=== PATIENT | male | born 1970 | race Caucasian/White ===

== ENCOUNTER 2021-10-03 12:24 | Emergency (ER) | payer MEDICARE ==
[2021-10-03 15:59] LABS: Basophils % (Auto) 0.6 % (0.0-1.8); Eosinophils # (Auto) 0.1 K/mm3 (0.0-0.4); Eosinophils % (Auto) 0.9 % (0.0-4.3); Hematocrit 41.9 % (35.5-45.6); Hemoglobin 14.8 gm/dl (11.8-15.2); Lymphocytes # (Auto) 2.4 K/mm3 (1.2-5.4); Lymphocytes % (Auto) 29.2 % (13.4-35.0); Mean Corpuscular HGB Conc 35 % (32-34); Mean Corpuscular Volume 98 fl (84-94); Monocytes # (Auto) 0.6 K/mm3 (0.0-0.8); Monocytes % (Auto) 7.4 % (0.0-7.3); Platelet Count 190 K/mm3 (140-440); Red Cell Distribution Width 13.7 % (13.2-15.2)
[2021-10-03 16:04] LABS: BUN/Creatinine Ratio 18; Blood Urea Nitrogen 14 mg/dL (9-20); Calcium 8.1 mg/dL (8.4-10.2); Hemolysis Index 15
--- NOTE | 2021-10-03 16:48 | Emergency Department Report ---
ED Psych HPI - General Chief Complaint: Psych Stated Complaint: Psychosis, HI Time Seen by Provider: 10/03/21 16:01 Source: EMS Mode of arrival: Stretcher Limitations: No Limitations - History of Present Illness Initial Comments: pt here for HI. Pt psychiatrist called and reported pt has been off meds for about 1 year, called and left threatening messages with doctor. displayed psychosis and delusional behavior. pt denies at this time MD Complaint: other -: week(s) Associated Psychiatric Symptoms: homicidal ideation Improves With: medication Context: not taking psychiatric Associated Symptoms: denies other symptoms Treatments Prior to Arrival: none - Related Data Previous Rx's Medication Instructions Recorded Last Taken Type Divalproex Dr [DepaKOTE DR] 250 mg PO BID 30 Days #60 tablet 10/06/21 Unknown Rx Quetiapine Fumarate [SEROquel] 300 mg PO QHS 30 Days #30 10/06/21 Unknown Rx Allergies Allergy/AdvReac Type Severity Reaction Status Date / Time No Known Allergies Allergy Unverified 10/03/21 12:33 ED Review of Systems ROS: Stated complaint: Psychosis, HI Other details as noted in HPI Comment: Unobtainable due to pts medical conditions ED Past Medical Hx - Past Medical History Previous Medical History?: Yes Hx Psychiatric Treatment: Yes (schizophrenia) - Medications Home Medications: Home Medications Medication Instructions Recorded Confirmed Last Taken Type Divalproex Dr [DepaKOTE DR] 250 mg PO BID 30 Days #60 tablet 10/06/21 Unknown Rx Quetiapine Fumarate [SEROquel] 300 mg PO QHS 30 Days #30 10/06/21 Unknown Rx ED Physical Exam - General Limitations: No Limitations General appearance: alert, in no apparent distress - Head Head exam: Present: atraumatic, normocephalic - Eye Eye exam: Present: normal appearance - ENT ENT exam: Present: mucous membranes moist - Neck Neck exam: Present: normal inspection - Respiratory Respiratory exam: Present: normal lung sounds bilaterally. Absent: respiratory distress - Cardiovascular Cardiovascular Exam: Present: regular rate, normal rhythm. Absent: systolic murmur, diastolic murmur, rubs, gallop - GI/Abdominal GI/Abdominal exam: Present: soft, normal bowel sounds - Rectal Rectal exam: Present: deferred - Extremities Exam Extremities exam: Present: normal inspection - Back Exam Back exam: Present: normal inspection - Neurological Exam Neurological exam: Present: alert, oriented X3 - Psychiatric Psychiatric exam: Present: anxious, homicidal ideation - Skin Skin exam: Present: warm, dry, intact, normal color. Absent: rash ED Course Vital Signs 10/03/21 10/03/21 10/04/21 12:27 20:26 10:11 Temperature 98.6 F 98.6 F 98.9 F Pulse Rate 93 H 96 H 89 Respiratory 14 18 18 Rate Blood Pressure 140/90 142/84 136/62 [Left] O2 Sat by Pulse 97 98 100 Oximetry 10/04/21 10/04/21 10/05/21 20:25 21:15 03:28 Temperature 99.8 F H 98.7 F Pulse Rate 109 H 83 Respiratory 18 18 16 Rate Blood Pressure 131/78 127/76 [Left] O2 Sat by Pulse 100 100 99 Oximetry 10/05/21 10/05/21 10/05/21 11:13 17:25 20:41 Temperature 99.7 F H 99.3 F Pulse Rate 99 H 90 Respiratory 16 18 Rate Blood Pressure 136/78 136/81 [Left] O2 Sat by Pulse 100 100 100 Oximetry 10/06/21 10:25 Temperature 98.8 F Pulse Rate 84 Respiratory 18 Rate Blood Pressure 124/68 [Left] O2 Sat by Pulse 100 Oximetry ED Medical Decision Making - Lab Data Result diagrams: 10/03/21 14:50 10/03/21 14:50 Critical care attestation.: If time is entered above; I have spent that time in minutes in the direct care of this critically ill patient, excluding procedure time. ED Disposition Clinical Impression: Schizophrenia Disposition: 01 HOME / SELF CARE / HOMELESS Is pt being admited?: No Does the pt Need Aspirin: No Condition: Stable Additional Instructions: OUTPATIENT MENTAL HEALTH RESOURCES [facility], [facility] Jennie Mcdonald MD: [address] [place] [address] [place], [place] [id number] [facility]: [facility] [address] [place] [address] [place] [address] [phone] [facility]: [facility] Healthcare: [address] [place] [address] [address] [place] [address] [place] [address] [facility] [id number] [facility]: Brad Navarro MD: [id number] [facility] [address] [facility] [id number] [facility]: [address] [place] [id number] [phone] OR CRISIS AND ACCESS LINE: * Prescriptions: Quetiapine Fumarate [SEROquel] 300 mg PO QHS 30 Days #[address] [DepaKOTE DR] 250 mg PO BID 30 Days #60 tablet Referrals: CHARITO GAYTAN MD [Primary Care Provider] - 3-5 Days
--- NOTE | 2021-10-04 07:53 | Emergency Department Report ---
Blank Doc - Documentation Documentation: There were no events throughout the course of the night for this patient. Labs have been reviewed. Urine is still pending as is a psychiatric evaluation. Patient is medically cleared at this time. A urinary tract infection or evidence of intoxicant on board would not alter the patient's current status. We are awaiting psychiatric evaluation and ultimate admission.
--- NOTE | 2021-10-04 09:43 | Consultation ---
History of Present Illness - Reason for Consult Consult date: 10/04/21 Reason for consult: psychosis, off meds - History of Present Psychiatric Illness HPI: The patient is here for HI. Pt psychiatrist called and reported pt has been off meds for about 1 year, called and left threatening messages with doctor. displayed psychosis and delusional behavior. pt denies at this time During my evaluation the patient is in the observation room. He is calm, but displaying psychosis. He says he's doing fine now but states "I was acting psychotic." He says "I only have schizophrenia because of racial discrimination." The patient says he's been off his meds for about 4 months. He says "I don't need them. It's because of discrimination." He says he is hearing voices. The patient says "they are all racial slurs that I hear, that I use against my psychiatrist. He denies SI/HI or hallucinations. He says he lives with his same sex partner. The patient says he is disabled. He denies any illicit drug use, alcohol or nicotine. REVIEW OF SYSTEMS Constitutional: Negative for weight loss ENT: Negative for stridor Respiratory: Negative for cough or hemoptysis All other systems reviewed and are negative MENTAL STATUS EXAMINATION General Appearance and Behavior: Age appropriate, good hygiene, wearing appropriate clothes, good eye contact, cooperative polite with questioning. Cooperation: Participating/engaged Psychomotor Behavior: unremarkable and within normal limits Mood: fine Affect and affective range: congruent with mood Thought Process: disorganized Thought Content: hallucinations Speech: Normal volume, Regular rate and rhythm Suicidal Ideation: Denies Homicidal Ideation: Denies Hallucinations: Auditory Delusions: Yes Impulse Control: Poor Insight and Judgment: Poor insight and good judgment Memory: Limited Attention: distracted Orientation: Alert, oriented 3 Assessment and Plan (1) schizophrenia Current Visit: Yes Status: Acute Treatment Plan 1013 Seroquel 100mg po BID Doxepin 10mg po qhs Haldol 5mg IM q6h prn agitatiom Medical: Per primary Disposition: Recommend acute psychiatric inpatient treatment Will follow. Thanks Case staffed with Dr. Padilla Medications and Allergies Allergies Allergy/AdvReac Type Severity Reaction Status Date / Time No Known Allergies Allergy Unverified 10/03/21 12:33 Mental Status Exam - Vital signs Last Vital Signs Temp 98.6 F 10/03/21 20:26 Pulse 96 H 10/03/21 20:26 Resp 18 10/03/21 20:26 BP 142/84 10/03/21 20:26 Pulse Ox 98 10/03/21 20:26 Results Result Diagrams: 10/03/21 14:50 10/03/21 14:50 Abnormal lab results 10/03/21 10/03/21 10/03/21 Range/Units 14:50 14:50 Unknown MCV 98 H (84-94) fl MCH 34 H (28-32) pg MCHC 35 H (32-34) % Fannin % (Auto) 7.4 H (0.0-7.3) % Carbon Dioxide 21 L (22-30) mmol/L Calcium 8.1 L (8.4-10.2) mg/dL Salicylates < 0.3 L (2.8-20.0) mg/dL Acetaminophen (10.0-30.0) ug/mL Plasma/Serum Alcohol (0-0.07) % 10/03/21 10/03/21 Range/Units Unknown Unknown MCV (84-94) fl MCH (28-32) pg MCHC (32-34) % Fannin % (Auto) (0.0-7.3) % Carbon Dioxide (22-30) mmol/L Calcium (8.4-10.2) mg/dL Salicylates (2.8-20.0) mg/dL Acetaminophen 5.0 L (10.0-30.0) ug/mL Plasma/Serum Alcohol 0.08 H (0-0.07) % All other labs normal.
[2021-10-04] MEDS ORDERED: HALOPERIDOL LACTATE 5 MG/1 ML INJ IM PRN (09:50)
[2021-10-04] MEDS: QUEtiapine 100 MG TAB PO SCH ×2 (11:22→23:03)
[2021-10-04] MEDS: DOXEPIN 10 MG CAP PO SCH (23:03)
--- NOTE | 2021-10-05 08:40 | Emergency Department Report ---
Blank Doc - Documentation Documentation: Patient had no events throughout the course of the night. He is improved and no longer requires seclusion. We still do not have urine results. We are still awaiting psychiatric placement as well. Patient has no concerns right now.
[2021-10-05] MEDS: QUEtiapine 100 MG TAB PO SCH ×2 (09:44→21:37)
--- NOTE | 2021-10-05 10:09 | Progress Note ---
Subjective - Reason for Consult Consult date: 10/05/21 Reason for consult: agitation - Chief Complaint Chief complaint: The patient was seen today. He is no longer in seclusion. He denies SI/HI. The patient still endorse the hallucinations. He initially would not tell me what the voices were saying. He says "they are not really saying anything." I then ask him again, he says "derogative slurs." REVIEW OF SYSTEMS Constitutional: Negative for weight loss ENT: Negative for stridor Respiratory: Negative for cough or hemoptysis All other systems reviewed and are negative MENTAL STATUS EXAMINATION General Appearance and Behavior: Age appropriate, good hygiene, wearing appropriate clothes, good eye contact, cooperative polite with questioning. Cooperation: Participating/engaged Psychomotor Behavior: unremarkable and within normal limits Mood: fine Affect and affective range: congruent with mood Thought Process: disorganized Thought Content: hallucinations Speech: Normal volume, Regular rate and rhythm Suicidal Ideation: Denies Homicidal Ideation: Denies Hallucinations: Auditory Delusions: Yes Impulse Control: Poor Insight and Judgment: Poor insight and good judgment Memory: Limited Attention: distracted Orientation: Alert, oriented 3 Assessment and Plan (1) schizophrenia Current Visit: Yes Status: Acute Treatment Plan 1013 Increase Seroquel 150mg po BID Start Depakote DR 125mg po BID Doxepin 10mg po qhs Haldol 5mg IM q6h prn agitatiom Medical: Per primary Disposition: Recommend acute psychiatric inpatient treatment Will follow. Thanks Case staffed with Dr. Padilla Mental Status Exam - Vital signs Last Vital Signs Temp 98.7 F 10/05/21 03:28 Pulse 83 10/05/21 03:28 Resp 16 10/05/21 03:28 BP 127/76 10/05/21 03:28 Pulse Ox 99 10/05/21 03:28
[2021-10-05] MEDS: DIVALPROEX DR 125 MG TAB PO SCH ×2 (11:11→21:37)
[2021-10-05 13:31] LABS: Bilirubin,Urine NEG (Negative); Blood,Urine NEG (Negative); Color,Urine Yellow (Yellow); Mucus,Urine FEW /HPF; Protein,Urine <15 mg/dL mg/dL (Negative); Urobilinogen,Urine < 2.0 mg/dL (<2.0)
[2021-10-05 13:34] LABS: Amphetamine Screen,Urine Negative; Benzodiazepines Screen,Urine Negative; Cannabinoid Screen,Urine Negative; Cocaine Screen,Urine Negative; Methadone Screen,Urine Negative; Opiate Screen,Urine Negative
[2021-10-05] MEDS: DOXEPIN 10 MG CAP PO SCH (21:37)
[2021-10-06] MEDS: DIVALPROEX DR 125 MG TAB PO SCH ×2 (09:50→22:30)
[2021-10-06] MEDS: QUEtiapine 100 MG TAB PO SCH ×2 (09:50→22:30)
--- NOTE | 2021-10-06 10:36 | Progress Note ---
Subjective - Reason for Consult Consult date: 10/06/21 Reason for consult: Mental health evaluation - Chief Complaint Chief complaint: The patient was seen today. He reports doing fine. The patient states sleep and appetite as good. He denies any current suicidal/homicidal ideation and denies hallucinations. REVIEW OF SYSTEMS Constitutional: Negative for weight loss ENT: Negative for stridor Respiratory: Negative for cough or hemoptysis All other systems reviewed and are negative MENTAL STATUS EXAMINATION General Appearance and Behavior: Age appropriate, good hygiene, wearing appropriate clothes, good eye contact, cooperative polite with questioning. Cooperation: Participating/engaged Psychomotor Behavior: unremarkable and within normal limits Mood: fine Affect and affective range: congruent with mood Thought Process: Goal oriented Thought Content: Reality oriented Speech: Normal volume, Regular rate and rhythm Suicidal Ideation: Denies Homicidal Ideation: Denies Hallucinations: Denies Delusions: Yes Impulse Control: Poor Insight and Judgment: Poor insight and good judgment Memory: Limited Attention: distracted Orientation: Alert, oriented 3 Assessment and Plan (1) schizophrenia Current Visit: Yes Status: Acute Treatment Plan DC 1013 Continue Seroquel 300mg po QHS Continue Depakote DR 250mg po BID Medical: Per primary Disposition: Do not recommend acute psychiatric inpatient treatment. [employer] will provide patient with out patient resources. Will sign off. Thanks Case staffed with Dr. Padilla Mental Status Exam - Vital signs Last Vital Signs Temp 98.8 F 10/06/21 10:25 Pulse 84 10/06/21 10:25 Resp 18 10/06/21 10:25 BP 124/68 10/06/21 10:25 Pulse Ox 100 10/06/21 10:25
--- NOTE | 2021-10-06 11:34 | Emergency Department Report ---
Blank Doc - Documentation Documentation: Patient did well throughout the night. He has been cleared from psychiatric s ervices and was discharged by them.
[2021-10-06] MEDS: DOXEPIN 10 MG CAP PO SCH (22:30)
[2021-10-07] MEDS: QUEtiapine 100 MG TAB PO SCH (10:08)
[2021-10-07] MEDS: DIVALPROEX DR 125 MG TAB PO SCH (10:08)
[2021-10-07 11:00] VITALS: BP 125/83
--- NOTE | 2021-10-07 11:16 | Emergency Department Report ---
Blank Doc - Documentation Documentation: Patient had been discharged yesterday. We are awaiting his partner to come pick him up. His partner has not been answering the phone. We will continue to await the arrival of his partner to pick this patient up and complete the discharge.
== END 2021-10-07 15:40 | disposition home or self-care (01) ==
LOC: ED 12:24
DX: F20.9 Schizophrenia, unspecified (principal); Z79.899 Other long term (current) drug therapy; Z20.822 Contact with and (suspected) exposure to COVID-19
CPT/HCPCS: 36415; 80048; 80307; 81001; 85025; 99285; U0003; 80320; G0480

== ENCOUNTER 2021-10-21 02:45 | Emergency (ER) | payer MEDICARE ==
[2021-10-21 05:38] LABS: Basophils % (Auto) 0.5 % (0.0-1.8); Eosinophils # (Auto) 0.1 K/mm3 (0.0-0.4); Hemoglobin 15.2 gm/dl (11.8-15.2); Lymphocytes # (Auto) 2.1 K/mm3 (1.2-5.4); Lymphocytes % (Auto) 26.3 % (13.4-35.0); Mean Corpuscular HGB Conc 33 % (32-34); Mean Corpuscular Volume 98 fl (84-94); Monocytes # (Auto) 0.7 K/mm3 (0.0-0.8); Monocytes % (Auto) 8.9 % (0.0-7.3); Platelet Count 235 K/mm3 (140-440)
[2021-10-21 06:00] LABS: Alanine Aminotransferase 27 units/L (7-56); Albumin 4.2 g/dL (3.9-5); BUN/Creatinine Ratio 20; Blood Urea Nitrogen 16 mg/dL (9-20); Calcium 9.1 mg/dL (8.4-10.2); Hemolysis Index 2
[2021-10-21 08:06] LABS: Amphetamine Screen,Urine Negative; Benzodiazepines Screen,Urine Negative; Cannabinoid Screen,Urine Negative; Cocaine Screen,Urine Negative; Methadone Screen,Urine Negative; Opiate Screen,Urine Negative
[2021-10-21 09:03] LABS: Mucus,Urine FEW /HPF; WBC,Urine < 1.0 /HPF (0.0-6.0)
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
[2021-10-21 09:46] LABS: Bilirubin,Urine Negative (Negative); Blood,Urine Negative (Negative); Color,Urine Yellow (Yellow)
[2021-10-21 09:47] LABS: Protein,Urine <15 mg/dL mg/dL (Negative); Urobilinogen,Urine < 2.0 mg/dL (<2.0)
[2021-10-21] MEDS ORDERED: DIVALPROEX DR 250 MG TAB PO SCH (10:00)
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
[2021-10-21 20:02] VITALS: BP 109/62
[2021-10-21] MEDS ORDERED: QUEtiapine 100 MG TAB PO SCH (22:00)
[2021-10-21] MEDS ORDERED: NON-FORMULARY EACH (Quetiapine Fumarate [Seroquel] 300 MG Tablet) PO SCH (22:00)
[2021-10-21] MEDS ORDERED: QUEtiapine 200 MG TAB PO SCH (22:00)
== END 2021-10-21 22:25 ==
LOC: EEVIPCON 02:45 → ED 02:45
DX: F20.9 Schizophrenia, unspecified (principal); Z20.822 Contact with and (suspected) exposure to COVID-19
CPT/HCPCS: 36415; 80053; 80307; 81001; 85025; 99285; U0003; 80320; G0480